=== PATIENT | male | born 1960 | race Caucasian/White ===

== ENCOUNTER 2024-01-20 06:13 | Day surgery (SDC) | payer BC, SELFPAY ==
--- NOTE | 2023-12-28 09:54 | CM ---
Patient is scheduled for an elective L THR on 01/20/24- he is a same day patient. Spoke with patient prior to surgery. Patient had a R THR at in 2012, He is an associate at . Introduced role of Orthopedic Navigator. Patient reports that he lives
with his in a one story home. There is one step to enter. He currently functions independently. He has a cane and raised toilet seat. He has had [facility] services through [facility]. PCP is Libra Tsang.
Discussed orthopedic program and post surgical plans. Reviewed that he will have VN services initially and will then start outpatient PT. Patient selects [facility] (face sheet faxed to [facility] to facilitate confirmation of benefits) for his home care
needs and will come to for outpatient PT.
Patient is in agreement with plan and states that his will be home with him.
Patient will complete online education.
Plan: Orthopedic Navigator will remain available to assist with the care of patient and will reassess discharge needs after surgery.
[2024-01-06 08:03] VITALS: BMI 27.6
[2024-01-06 09:03] LABS: Hematocrit 43.7 % (39.0-52.0); Hemoglobin 14.3 g/dL (13.0-18.0); Mean Corp Hgb Conc. 32.7 g/dL (33.0-37.0); Mean Corpuscular Hgb 28.7 pg (27.0-31.0); Mean Corpuscular Volume 87.8 fL (80.0-94.0); Mean Platelet Volume 10.6 fL (7.4-10.4); Platelet Count 214 10^3/uL (130-400); Red Blood Cell Count 4.98 10^6/uL (4.70-6.10); Red Cell Dist. Width 13.4 % (11.5-14.5); White Blood Cell Count 4.6 10^3/uL (4.8-10.8)
[2024-01-06 09:37] LABS: ALT (SGPT) 29 U/L (0-50); AST (SGOT) 26 U/L (17-59); Albumin 4.4 g/dl (3.5-5.0); Alkaline Phosphatase 88 U/L (38-126); Blood Urea Nitrogen 17 mg/dl (9-20); Calcium 9.7 mg/dl (8.4-10.2); Carbon Dioxide 26 mmol/L (22-30); Chloride 102 mmol/L (98-107); Estimated Creatinine Clearance 64 ml/min; Glucose 77 mg/dl (70-99); Potassium 4.2 mmol/L (3.5-5.1); Sodium 139 mmol/L (135-145); Total Bilirubin 1.2 mg/dl (0.2-1.3); eGFR > 60.00
--- NOTE | 2024-01-06 10:53 | HPS.HSE ---
Family Physician
-
Family Physician: Libra Tsang
Chief Complaint
-
Advanced primary osteoarthritis of the left hip. Same-day surgery.
History of Present Illness
The patient is a 63-year-old male presenting today for advanced primary osteoarthritis of the left hip. The patient previously underwent a right total hip arthroplasty in [address] Robert Mann secondary to advanced
osteoarthritis. He returns to [facility] today with complaints of significant left hip pain associated with this diagnosis. He notes that his current left hip pain is greatly interfering with his activities of daily living and is overall
impacting his quality of life. He has tried and failed multiple conservative treatment measures in the past for his left hip pain. These conservative treatment measures include physical therapy, self-directed therapeutic exercises, activity
modification, attempted weight loss, medical management with Tylenol and NSAIDs, and the application of ice and/or heat. Recent x-ray findings of the left hip confirmed advanced osteoarthritis. He was determined to be in need of a left total hip
arthroplasty. He denies any current complaints today such as chest pain, shortness of breath, palpitations, nausea, vomiting, diarrhea, lightheadedness, dizziness, cough, sore throat, or fever.
Medical History
Past Medical History
Past Medical History: Reports Other
Additional Past Medical History:
1. Osteoarthritis, status post right total hip arthroplasty, 06/2013, by Dr. Robert Mann.
2. Hyperlipidemia.
3. Asthma, mild and persistent.
4. Chronic sinusitis, on Dupixent biweekly.
5. Obstructive sleep apnea, compliant with CPAP (variable setting).
6. GERD.
7. Colon polyp.
8. Hemorrhoids with history of hemorrhoidal bleeding.
9. 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
10. Concussion, 2020, without long-term side effects.
11. BPH.
12. Basal cell carcinoma, status post excision.
13. Mild leukopenia.
14. Prediabetes, A1c 5.9.
Past Surgical History: Reports Other
Additional Past Surgical History:
1. Right total hip arthroplasty, 06/2013, by Dr Robert Mann.
2. Open reduction with pinning of right small metacarpal neck fracture.
3. Excision of right small finger Dupuytren's.
4. Endoscopic sinus surgery x2.
5. Basal cell carcinoma excision.
6. Colonoscopy x2.
7. Endoscopy.
Social History
Tobacco: Non-smoker
Alcohol: None
Personal:
Living: Other (He lives with his and son in a ranch style home. His has been diagnosed with multiple sclerosis previously. )
Family History
Family History: Not pertinent
Allergies / Home Medications
Allergy/Medication List:
Home medications:
1. Albuterol sulfate 2 puffs inhaled every 6 hours as needed.
2. Ascorbic acid 1000 mcg p.o. occasionally.
3. Budesonide 0.5 mg inhaled twice a day.
4. Cetirizine 10 mg p.o. every evening.
5. Cholecalciferol 3000 units p.o. occasionally.
6. Benadryl 25 mg p.o. every 6 hours as needed.
7. Dupixent 300 mg subcutaneous every 2 weeks.
8. Advair Diskus 1 inhalation 1-2 times a day.
9. Montelukast 10 mg p.o. every evening.
10. Omeprazole 40 mg p.o. every evening.
Allergies: Previous right total hip arthroplasty dressing. Seasonal.
Adverse drug reactions: Dilaudid (vomiting, headache).
Review of Systems
-
A 12 point ROS was completed and negative except as noted: Yes
Physical Exam
Vital Signs
Blood pressure 122/74. Heart rate 55. Respirations 18. Pulse ox 98%.
Height 5 feet, 10 inches. Weight 87.1 kg. BMI 27.6.
Physical Exam
General: Well Developed, Well Nourished and No Apparent Distress
HEENT: NormoCephalic, Moist mucous membranes, Atraumatic and PERRLA
Respiratory: Clear
Cardiac: Regular Rhythm
GI: Soft, Non Tender and Non Distended
Musculoskeletal: Other (Right hip: 40 internal, 40 external, no pain. Left hip: 5 internal, 20 external with pain, non-tender to palpation. )
Skin: Warm and Dry
Neuro: AO x 3 and Nonfocal/grossly intact
Laboratory Results
-
01/06/24 07:54
01/06/24 07:54
Laboratory Results
Total Bilirubin 1.2 mg/dl (0.2-1.3) 01/06/24 07:54
AST 26 U/L (17-59) 01/06/24 07:54
ALT 29 U/L (0-50) 01/06/24 07:54
Alkaline Phosphatase 88 U/L (38-126) 01/06/24 07:54
Hemoglobin A1c 5.9.
MRSA screen negative.
EKG 01/06/2024: Normal sinus rhythm.
Impression/Plan
-
CLEARANCES:
1. Primary Medical, Dr. Smyth [place] - cleared.
Primary medical phone number: [phone].
2. Dental - waived.
IMPRESSION/PLAN:
1. Advanced primary osteoarthritis of the left hip in need of a left total hip arthroplasty by Dr. Robert Mann on 01/20/2024. The benefits and risks of the procedure have been explained to the patient. The patient understands these risks and
wishes to proceed.
2. DVT prophylaxis: Aspirin.
3. Pain management: The patient has stable comorbidities as referenced by his primary care physician and is medically optimized to proceed as a Same-Day Surgery candidate on 01/20/2024. In preparation for his procedure, he has already been
prescribed Oxycodone 5 mg, 1-2 tablets p.o. every 6 hours as needed for moderate severe post-operative pain. He will also utilize Acetaminophen 1000 mg p.o. every 6 hours, Celebrex 200 mg p.o. daily, and Dexamethasone 4 mg p.o. twice a day for three
days post-surgery.
4. BPH: The patient was offered Flomax to be taken pre-operatively but he refused. He was notified that Flomax may be used post-procedure should urinary retention present.
5. Dressing concerns: The patient voiced concerns regarding the previous incision dressing that was used after his right total hip arthroplasty in 2012. These concerns were discussed with his surgeon pre-operatively.
Patient's phone number: [phone].
Patient's contact (Pao Peck - Spouse); [phone].
[2024-01-06 11:50] LABS: Glycohemoglobin (HgbA1c) 5.9 % (4.0-5.6)
[2024-01-06 16:36] VITALS: BMI 27.6
[2024-01-20] VITALS (11 sets, daily range): BP systolic 116–147; BP diastolic 74–93; BMI 27.6
[2024-01-20] MEDS: TYLENOL 650 MG PO (07:13)
[2024-01-20] MEDS: CELEBREX 200 MG PO (07:13)
[2024-01-20] MEDS: NORMOSOL-R 1000 IV (07:24)
[2024-01-20] MEDS: COMPAZINE 5 MG IV (09:48)
--- NOTE | 2024-01-20 10:30 | CM ---
Patient had planned L THR today. Met with patient at bedside to review discharge plans. Patient will be returning home today with services through [facility]. On Thursday, 01/24, patient will start outpatient PT at [facility]. Reviewed MD follow up
in two weeks and patient is aware of need to schedule appointment.
Patient forgot his rolling walker; PT aware.
PT and [facility] were kept updated as to progress and discharge plans.
[2024-01-20] MEDS: ANCEF 5 IV (11:45)
== END 2024-01-20 12:24 | disposition home health service (06) ==
LOC: SDS 06:13
PROVIDERS: ATTENDING PHYSICIAN Orthopaedic Surgery; FAMILY PHYSICIAN Family Medicine
DX: M16.12 Unilateral primary osteoarthritis, left hip (principal)
CPT/HCPCS: 27130; 36415; 73502; 80053; 83036; 85027; 87070; 93005; 97162; C1776

== ENCOUNTER 2024-02-01 08:52 | Outpatient (RCR) | payer BC, SELFPAY | END 2024-02-01 23:59 | disposition home or self-care (01) | LOC: RPT 08:52 | PROVIDERS: ATTENDING PHYSICIAN Orthopaedic Surgery; FAMILY PHYSICIAN Family Medicine | DX: Z47.1 Aftercare following joint replacement surgery (principal); M25.552 Pain in left hip; Z73.6 Limitation of activities due to disability; M62.81 Muscle weakness (generalized); Z96.642 Presence of left artificial hip joint | CPT/HCPCS: 97010; 97110; 97140; 97161 ==

== ENCOUNTER → 2024-03-04 07:03 | Outpatient (REF) | payer BC, SELFPAY ==
[2024-03-04 08:12] LABS: Hematocrit 43.1 % (39.0-52.0); Hemoglobin 13.8 g/dL (13.0-18.0); Mean Corpuscular Hgb 28.9 pg (27.0-31.0); Mean Corpuscular Volume 90.2 fL (80.0-94.0); Mean Platelet Volume 10.6 fL (7.4-10.4); Platelet Count 197 10^3/uL (130-400); Red Blood Cell Count 4.78 10^6/uL (4.70-6.10); Red Cell Dist. Width 13.2 % (11.5-14.5); White Blood Cell Count 4.1 10^3/uL (4.8-10.8)
[2024-03-04 09:11] LABS: Glycohemoglobin (HgbA1c) 5.8 % (4.0-5.6)
[2024-03-04 09:14] LABS: ALT (SGPT) 20 U/L (0-50); AST (SGOT) 25 U/L (17-59); Albumin 4.3 g/dl (3.5-5.0); Alkaline Phosphatase 97 U/L (38-126); Blood Urea Nitrogen 18 mg/dl (9-20); Calcium 9.8 mg/dl (8.4-10.2); Carbon Dioxide 30 mmol/L (22-30); Chloride 104 mmol/L (98-107); Glucose 89 mg/dl (70-99); HDL Cholesterol 68 mg/dl; LDL Cholesterol, Calculated 99 mg/dl; Potassium 5.2 mmol/L (3.5-5.1); Sodium 141 mmol/L (135-145); Total Bilirubin 1.5 mg/dl (0.2-1.3); Total Cholesterol 186 mg/dl (50-199); Total Protein 6.9 g/dl (6.3-8.2); Triglyceride 99 mg/dl (10-149); Very Low Density Lipoprotein 19 mg/dl (0-30); eGFR > 60.00
[2024-03-04 09:31] LABS: TSH Reflex To Free T4 1.79 uIU/ml (0.47-4.68)
== END ==
LOC: REG 07:03
PROVIDERS: ATTENDING PHYSICIAN Family Medicine
DX: Z00.00 Encounter for general adult medical examination without abnormal findings (principal); E78.2 Mixed hyperlipidemia
CPT/HCPCS: 36415; 80053; 80061; 83036; 84443; 85027

== ENCOUNTER 2024-03-04 10:04 | Outpatient (RCR) | payer BC, SELFPAY | END 2024-03-04 23:59 | disposition home or self-care (01) | LOC: RPT 10:04 | PROVIDERS: ATTENDING PHYSICIAN Orthopaedic Surgery; FAMILY PHYSICIAN Family Medicine | DX: Z47.1 Aftercare following joint replacement surgery (principal); M25.552 Pain in left hip; Z73.6 Limitation of activities due to disability | CPT/HCPCS: 97010; 97110; 97112 ==

== ENCOUNTER 2024-04-01 08:55 | Outpatient (RCR) | payer BC, SELFPAY | END 2024-04-01 23:59 | disposition home or self-care (01) | LOC: RPT 08:55 | PROVIDERS: ATTENDING PHYSICIAN Orthopaedic Surgery; FAMILY PHYSICIAN Family Medicine | DX: Z47.1 Aftercare following joint replacement surgery (principal); M25.552 Pain in left hip; Z73.6 Limitation of activities due to disability; M62.81 Muscle weakness (generalized); Z96.642 Presence of left artificial hip joint | CPT/HCPCS: 97110; 97112 ==

== ENCOUNTER 2024-04-12 15:10 | Outpatient (RCR) | payer BC, SELFPAY | END 2024-04-13 07:33 | disposition home or self-care (01) | LOC: RPT 15:10 | PROVIDERS: ATTENDING PHYSICIAN Orthopaedic Surgery; FAMILY PHYSICIAN Family Medicine | DX: Z47.1 Aftercare following joint replacement surgery (principal); M25.552 Pain in left hip; Z73.6 Limitation of activities due to disability; M62.81 Muscle weakness (generalized); Z96.642 Presence of left artificial hip joint | CPT/HCPCS: 97110; 97112 ==

== ENCOUNTER → 2024-05-05 06:23 | Outpatient (REF) | payer BC, SELFPAY ==
[2024-05-05 07:35] LABS: % Basophils 0.8 % (0-2); % Eosinophils 2.4 % (0-6); % Immature Granulocytes 0.2 % (0-0.5); % Lymphocytes 27.3 % (20.5-51.1); % Neutrophils 59.3 % (42.2-75.2); Absolute Eosinophils 0.1 10^3/uL (0-0.7); Absolute Lymphocytes 1.4 10^3/uL (1.2-3.4); Absolute Monocytes 0.5 10^3/uL (0.1-0.6); Hematocrit 40.5 % (39.0-52.0); Hemoglobin 13.2 g/dL (13.0-18.0); Mean Corp Hgb Conc. 32.6 g/dL (33.0-37.0); Mean Corpuscular Hgb 28.5 pg (27.0-31.0); Mean Corpuscular Volume 87.5 fL (80.0-94.0); Mean Platelet Volume 10.8 fL (7.4-10.4); Nucleated Red Blood Cells % 0 % (-); Platelet Count 210 10^3/uL (130-400); Red Blood Cell Count 4.63 10^6/uL (4.70-6.10); Red Cell Dist. Width 13.5 % (11.5-14.5)
[2024-05-05 08:08] LABS: ALT (SGPT) 18 U/L (0-50); AST (SGOT) 23 U/L (17-59); Albumin 4.3 g/dl (3.5-5.0); Alkaline Phosphatase 86 U/L (38-126); Blood Urea Nitrogen 19 mg/dl (9-20); Calcium 9.5 mg/dl (8.4-10.2); Carbon Dioxide 27 mmol/L (22-30); Chloride 105 mmol/L (98-107); Glucose 92 mg/dl (70-99); Potassium 4.4 mmol/L (3.5-5.1); Sodium 138 mmol/L (135-145); Total Bilirubin 1.2 mg/dl (0.2-1.3); Total Protein 6.6 g/dl (6.3-8.2); eGFR > 60.00
== END ==
LOC: REG 06:23
PROVIDERS: ATTENDING PHYSICIAN Family Medicine
DX: E87.5 Hyperkalemia (principal); R79.9 Abnormal finding of blood chemistry, unspecified
CPT/HCPCS: 36415; 80053; 85025

== ENCOUNTER → 2025-06-09 06:49 | Outpatient (REF) | payer BC, SELFPAY ==
[2025-06-09 07:26] LABS: Hematocrit 43.5 % (39.0-52.0); Hemoglobin 14.6 g/dL (13.0-18.0); Mean Corp Hgb Conc. 33.6 g/dL (33.0-37.0); Mean Corpuscular Volume 89.5 fL (80.0-94.0); Nucleated Red Blood Cells % 0 % (-); Platelet Count 190 10^3/uL (130-400); Red Cell Dist. Width 13.0 % (11.5-14.5)
[2025-06-09 07:51] LABS: ALT (SGPT) 25 U/L (0-50); AST (SGOT) 23 U/L (17-59); Albumin 4.4 g/dl (3.5-5.0); Alkaline Phosphatase 76 U/L (38-126); Blood Urea Nitrogen 15 mg/dl (9-20); Calcium 9.4 mg/dl (8.4-10.2); Carbon Dioxide 29 mmol/L (22-30); Chloride 105 mmol/L (98-107); Glucose 89 mg/dl (70-99); HDL Cholesterol 64 mg/dl; LDL Cholesterol, Calculated 77 mg/dl; Potassium 4.5 mmol/L (3.5-5.1); Sodium 138 mmol/L (135-145); Total Protein 6.8 g/dl (6.3-8.2); Very Low Density Lipoprotein 13 mg/dl (0-30); eGFR > 60.00
[2025-06-09 08:16] LABS: PSA, Total - Screen 0.48 ng/ml (0.0-4.0)
[2025-06-09 09:49] LABS: Glycohemoglobin (HgbA1c) 5.8 % (4.0-5.6)
== END ==
LOC: REG 06:49
PROVIDERS: ATTENDING PHYSICIAN Family Medicine
DX: E78.2 Mixed hyperlipidemia (principal); E80.4 Gilbert syndrome; R73.03 Prediabetes; Z00.00 Encounter for general adult medical examination without abnormal findings
CPT/HCPCS: 36415; 80053; 80061; 83036; 84443; 85025; G0103

== ENCOUNTER 2025-09-14 06:23 | Day surgery (SDC) | payer BC, SELFPAY | END 2025-09-14 10:49 | disposition home or self-care (01) | LOC: GI 06:23 | PROVIDERS: ATTENDING PHYSICIAN Internal Medicine | DX: Z12.11 Encounter for screening for malignant neoplasm of colon (principal); K57.30 Diverticulosis of large intestine without perforation or abscess without bleeding; K64.8 Other hemorrhoids; K63.5 Polyp of colon | CPT/HCPCS: 45385; 45380; 88305 ==